=== PATIENT | male | born 1955 | race Native Hawaiian/Other Pacific Islander ===

== ENCOUNTER 2017-01-21 19:05 | Emergency (ER) | payer BC ==
[~2017-01-21] VITALS: Ht 182.9 cm; Wt 97.5 kg
[2017-01-21 19:35] LABS: PLATELET COUNT 210 K/uL (142-355)
[2017-01-21 19:42] LABS: POTASSIUM 4.1 mmol/L (3.6-5.2); SODIUM 137 mmol/L (136-145)
[2017-01-21 21:30] VITALS: BP 132/87; TEMP 97.8
== END 2017-01-21 21:34 | disposition home or self-care (01) ==
LOC: ED 19:05
PROVIDERS: Emergency Medicine
DX: R11.10 Vomiting, unspecified (principal); R19.7 Diarrhea, unspecified
CPT/HCPCS: 36415; 80053; 81000; 82550; 84484; 85027; 96361; 96374; 96375; 99284; J1200; J2405